=== PATIENT | female | born 1950 | race Caucasian/White ===

== ENCOUNTER 2017-05-07 14:47 | Emergency (ER) | payer OTHER ==
[~2017-05-07] VITALS: Ht 157.5 cm; Wt 87.0 kg
[2017-05-07 14:52] VITALS: Ht 157.5 cm; Wt 87.0 kg
--- NOTE | 2017-05-07 15:26 | ERD ---
ER Documentation Chief Complaint Chief Complaint DYSURIA, BURNING FOR 2 DAYS; NO HEMATURIA HPI Patient is a 66-year-old female who presents to the ED with dysuria, urgency and frequency 1 day. Denies fever or chills. Denies abdominal pain, nausea, vomiting or diarrhea. Denies hematuria. Patient has a history of UTIs and always takes Cipro and states that it gets better. Has a history of pyelonephritis in the past and was admitted however denies back pain, fever or vomiting. No other complaints. ROS All systems reviewed and are negative except as per history of present illness. Medications Home Meds Active Scripts Ciprofloxacin Hcl* (Ciprofloxacin Hcl*) 500 Mg Tablet, 500 MG PO BID for 10 Days , TAB Prov:JOSE ANTONIO RAMOS PA-C 05/07/17 PMhx/Soc History of Surgery: No Anesthesia Reaction: No Hx Neurological Disorder: No Hx Respiratory Disorders: No Hx Cardiac Disorders: No Hx Psychiatric Problems: No Hx Miscellaneous Medical Probl: No Hx Alcohol Use: No Hx Substance Use: No Hx Tobacco Use: No Smoking Status: Never smoker Physical Exam Vitals Vital Signs Date Time Temp Pulse Resp B/P Pulse Ox O2 Delivery O2 Flow Rate FiO2 05/07/17 14:52 98.3 78 18 156/74 99 Physical Exam GENERAL: Well-developed, well-nourished female. Appears in no acute distress. LUNG: Clear to auscultation bilaterally. No rhonchi, wheezing, rales or coarse breath sounds. HEART: Regular rate and rhythm. No murmurs, rubs or gallops. ABDOMEN: No scars, ecchymosis or rashes noted. Soft, nontender, and nondistended. Positive bowel sounds in all four quadrants. No rebound tenderness , no guarding. (-) McBurneys point tenderness. No CVA tenderness. BACK: No midline tenderness. Extremities: Equal pulses bilaterally. No peripheral clubbing, cyanosis or edema. No unilateral leg swelling. NEUROLOGIC: Alert and oriented. Moving all four extremities. 5/5 strength in all extremities. Normal speech. Steady gait. SKIN: Normal color. Warm and dry. No rashes or lesions. Capillary refill < 2 seconds Results 24 hrs Laboratory Tests Test 05/07/17 15:27 Bedside Urine pH (LAB) 6.0 Bedside Urine Protein (LAB) Negative Bedside Urine Glucose (UA) Negative Bedside Urine Ketones (LAB) Negative Bedside Urine Blood 1+ Bedside Urine Nitrite (LAB) Positive Bedside Urine Leukocyte Esterase (L Trace Procedures/MDM ER COURSE: I kept the patient and/or family informed of laboratory and diagnostic imaging results throughout the emergency room course. MEDICAL DECISION MAKING: This is a 66-year-old female who presents with dysuria and urgency 1 day. Vital signs were reviewed. Patient is afebrile. Patient is not hypoxic. Patient is not toxic or ill-appearing. Patient urine dip shows 1+ leukocytes, nitrites. Low suspicion for pyelonephritis, septic stone or obstructed stone. Low suspicion for sepsis. Patient will be sent with ciprofloxacin x 10 days. DISCHARGE: At this time, patient is stable for discharge and outpatient management with no new complaints during the ER course. Patient was sent home with ciprofloxacin. Patient will be discharged home with instructions to recheck for new or worsening symptoms such as fever, nausea, weakness, LOC and to follow up with primary care in the next 1-2 days. Patient was advised to return to the ER for any new or worsening symptoms. Plan was discussed and patient and/or family understands and agrees. Home instructions were given. Departure Diagnosis: Primary Impression: Cystitis Condition: Stable JOSE ANTONIO RAMOS PA-C May 07, 2017 15:26
[2017-05-07 15:29] LABS: URINE BLOOD (Dip) POC 1+ (NEGATIVE)
[2017-05-07] MEDS ORDERED: CIPR500T4 PO (16:06)
== END 2017-05-07 16:25 | disposition home or self-care (01) ==
LOC: FTE 14:47
DX: N30.90 Cystitis, unspecified without hematuria (principal)
CPT/HCPCS: 81003; 87086; Z7502; 99283

== ENCOUNTER 2018-02-23 18:29 | Emergency (ER) | END 2018-02-23 18:47 | disposition left against medical advice (07) ==

== ENCOUNTER 2018-02-24 04:51 | Emergency (ER) | END 2018-02-24 06:48 | disposition home or self-care (01) ==